=== PATIENT | female | born 1995 | race Caucasian/White ===

== ENCOUNTER 2021-01-20 21:41 | Outpatient (CLI) | payer MEDICAID ==
[2021-01-20 22:12] VITALS: BP 114/65
[2021-01-20] MEDS ORDERED: LACTATED RINGERS 1,000 ML IV ONE (22:44)
[2021-01-20 22:59] LABS: Bacteria,Urine 2+ /HPF (Negative); Bilirubin,Urine NEG (Negative); Blood,Urine NEG (Negative); Color,Urine Yellow (Yellow); Mucus,Urine 3+ /HPF
== END 2021-01-20 23:34 | disposition home or self-care (01) ==
LOC: TRG 21:41
PROVIDERS: ATTEND Obstetrics & Gynecology
DX: O26.893 Other specified pregnancy related conditions, third trimester (principal); R10.9 Unspecified abdominal pain; Z3A.31 31 weeks gestation of pregnancy
CPT/HCPCS: 59025; 81001

== ENCOUNTER 2021-03-19 01:58 | Inpatient (IN) | payer MEDICAID ==
[2021-03-19] MEDS: LACTATED RINGERS 1,000 ML IV SCH ×2 (02:00→05:52)
--- NOTE | 2021-03-19 02:53 | Anesthesia Day of Surgery ---
Anesthesia Day of Surgery - Day of Surgery Patient Examined: Yes Patient H&P Reviewed: Yes Patient is NPO: Yes Beta Blockers: No Cardiac Clearance: No Pulmonary Clearance: No Phillip's Test: N/A
[2021-03-19] MEDS ORDERED: NALOXONE 0.4 MG/1 ML INJ IV PRN ×2 (02:55→03:22)
[2021-03-19] MEDS ORDERED: ONDANSETRON 4 MG/2 ML INJ IV PRN (02:55)
[2021-03-19] MEDS ORDERED: HYDROmorphone 1 MG/1 ML INJ IV PRN (02:55)
--- NOTE | 2021-03-19 02:55 | Anesthesia Consultation ---
Anesthesia Consult and Med Hx Date of service: 03/19/21 - Airway Anesthetic Teeth Evaluation: Poor ROM Head & Neck: Adequate Mental/Hyoid Distance: Adequate Mallampati Class: Class II Intubation Access Assessment: Probably Good - Pulmonary Exam CTA: Yes - Cardiac Exam Cardiac Exam: RRR - Pre-Operative Health Status ASA Pre-Surgery Classification: ASA3 Proposed Anesthetic Plan: Spinal - Pre-Anesthesia Comment Pre-Anesthesia Comments: csection 2020 - Pulmonary Hx Smoking: No Hx Asthma: No Hx Respiratory Symptoms: No SOB: No COPD: No Home Oxygen Therapy: No Hx Pneumonia: No Hx Sleep Apnea: No - Cardiovascular System Hx Hypertension: No Hx Coronary Artery Disease: No Hx Heart Attack/AMI: No Hx Angina: No Hx Percutaneous Transluminal Coronary Angioplasty (PTCA): No Hx Cardia Arrhythmia: No Hx Pacemaker: No Hx Internal Defibrillator: No Hx Valvular Heart Disease: No Hx Heart Murmur: No Hx Peripheral Vascular Disease: No - Central Nervous System Hx Neuromuscular Disorder: No Hx Seizures: No CVA: No Hx Back Pain: Yes Hx Psychiatric Problems: No - Gastrointestinal Hx Ulcer: No Hx Gastroesophageal Reflux Disease: Yes - Endocrine Hx Renal Disease: No Hx End Stage Renal Disease: No Hx Cirrhosis: No Hx Liver Disease: No Hx Insulin Dependent Diabetes: No Hx Non-Insulin Dependent Diabetes: No Hx Thyroid Disease: No Hx Hypothyroidism: No Hx Hyperthyroidism: No - Hematic Hx Anemia: No Hx Sickle Cell Disease: No - Other Systems Hx Alcohol Use: No Hx Substance Use: No Hx Cancer: No Hx Obesity: Yes - Additional Comments Anesthesia Medical History Comments: HIV POSITIVE
[2021-03-19] MEDS ORDERED: FAMOTIDINE 20 MG/2 ML INJ IV ONE (02:59)
[2021-03-19] MEDS ORDERED: ceFAZolin/Water 2 GM/20 ML 2 GM/20 ML SYRINGE IV NR (02:59)
[2021-03-19] MEDS ORDERED: BICITRA ORAL LIQD 30ML PO ONE (02:59)
[2021-03-19] MEDS ORDERED: METOCLOPRAMIDE 10 MG/2 ML INJ IV ONE (02:59)
[2021-03-19 03:11] LABS: Eosinophils % (Auto) 0.5 % (0.0-4.3); Hematocrit 30.2 % (30.3-42.9); Hemoglobin 9.8 gm/dl (10.1-14.3); Lymphocytes # (Auto) 2.3 K/mm3 (1.2-5.4); Lymphocytes % (Auto) 23.5 % (13.4-35.0); Mean Corpuscular HGB Conc 33 % (30-34); Monocytes # (Auto) 0.7 K/mm3 (0.0-0.8); Monocytes % (Auto) 7.5 % (0.0-7.3); Platelet Count 249 K/mm3 (140-440); Red Blood Count 4.63 M/mm3 (3.65-5.03)
[2021-03-19 03:12] LABS: Mean Corpuscular Volume 65 fl (79-97)
--- NOTE | 2021-03-19 03:19 | History and Physical Report ---
History of Present Illness Date of examination: 03/19/21 Date of admission: March 19, 2021 Chief complaint: Leakage of fluid History of present illness: 25-year-old -1-0-1 at 39+5 weeks who presents in active labor with advanced cervical dilatation and leakage of fluid. The patient's course is complicated by positive HIV status, previous delivery, late presentation to care at 34 weeks and language barrier. The patient has been on Descovy during her . She is GBS positive. Past History Past Medical History: other (HIV positive) Past Surgical History: section Social history: single - Obstetrical History Expected Date of Delivery: 03/21/21 Actual Gestation: 39 Week(s) 5 Day(s) : 2 Para: 1 Hx # Term Pregnancies: 0 Number of Pregnancies: 1 Spontaneous Abortions: 0 Induced : 0 Number of Living Children: 1 Medications and Allergies Allergies Allergy/AdvReac Type Severity Reaction Status Date / Time No Known Allergies Allergy Verified 03/12/20 02:15 Home Medications Medication Instructions Recorded Confirmed Last Taken Type Descovy 200-25 mg (Nf) 1 tab PO QDAY 03/19/21 03/19/21 03/18/21 10:00 History Dolutegravir [Tivicay] 1 tab PO DAILY 03/19/21 03/19/21 03/18/21 10:00 History Vitamin 1 tab PO QDAY 03/19/21 03/19/21 03/18/21 10:00 History Active Meds: Active Medications Hydromorphone HCl (Hydromorphone 1 Mg/1 Ml Inj) 0.5 mg IV Q5M PRN PRN Reason: BREAK Stop: 03/19/21 10:24 Lactated Ringer's (Lactated Ringers) 1,000 mls @ 2,250 mls/hr IV PREOP CARMEN Stop: 03/20/21 03:12 Last Admin: 03/19/21 02:00 Dose: 2,250 mls/hr Documented by: Cefazolin Sodium (Ancef/Sterile Water 2 Gm/20 Ml) 2 gm in 20 mls @ 80 mls/hr IV PREOP NR; Protocol Stop: 03/19/21 23:45 Naloxone HCl (Naloxone 0.4 Mg/1 Ml Inj) 0.2 mg IV Q2MIN PRN PRN Reason: Res Rate </= 8 or 02 SAT < 92% Ondansetron HCl (Ondansetron 4 Mg/2 Ml Inj) 4 mg IV Q8H PRN PRN Reason: Nausea And Vomiting Sodium Chloride (Sodium Chloride 0.9% 10 Ml Flush Syringe) 10 ml IV PRN NR Stop: 03/20/21 02:59 Review of Systems All systems: negative Genitourinary: leakage of fluid, pelvic pain, contractions - Vital Signs Vital signs: Vital Signs Pulse Pulse Ox 103 H 97 03/19/21 02:17 03/19/21 02:17 Temp Pulse Resp BP Pulse Ox 91 H 98 03/19/21 03:12 03/19/21 03:12 - Physical Exam Breasts: Positive: deferred Cardiovascular: Regular rate Lungs: Positive: Clear to auscultation Abdomen: Positive: normal appearance Results Result Diagrams: 03/19/21 02:25 Abnormal lab results 03/19/21 Range/Units 02:25 Hgb 9.8 L (10.1-14.3) gm/dl Hct 30.2 L (30.3-42.9) % MCV 65 L (79-97) fl MCH 21 L (28-32) pg RDW 19.0 H (13.2-15.2) % [place] % (Auto) 7.5 H (0.0-7.3) % All other labs normal. Assessment and Plan - Patient Problems (1) Previous delivery affecting Current Visit: Yes Status: Acute Plan to address problem: The risk and benefits of the surgery were discussed with the patient via the language line The patient will undergo a repeat delivery (2) HIV positive Current Visit: Yes Status: Acute (3) Active labor at term Current Visit: Yes Status: Acute (4) Spontaneous rupture of membranes Current Visit: Yes Status: Acute
--- NOTE | 2021-03-19 03:20 | Procedure Note ---
OB Delivery Note - Delivery Date of Delivery: 03/19/21 Surgeon: NATY GUERRA Estimated blood loss: other (600 mL) - Section Preop diagnosis: repeat Postop diagnosis: same section procedure: section, repeat low transverse Disposition: PACU - Infant A at 1 minute: 8 at 5 minutes: 9 Infant Gender: Male (Weight 3470 g)
--- NOTE | 2021-03-19 03:21 | Operative Report ---
Operative Report Operative Report: Date of surgery: April 15, 2021 Preoperative diagnosis: at 39+5 weeks; previous delivery; ac tive labor at term; positive HIV status; spontaneous rupture membranes Postoperative diagnosis: Same as above Procedure: Repeat low transverse delivery; lysis of adhesion Surgeon: Karla Chong M.D. Anesthesia: Regional Estimated blood loss: 600 mL IV fluids: 900 mL Urine output: 150 mL Findings: Liveborn male infant with Apgars of 8 and 9 weight 3470 g Indications: 25-year-old -1-0-1 at 39+5 weeks who presents in active labor and spontaneous rupture of membranes with a history of prior delivery. The patient is HIV positive. Procedure: The patient was taken to the operating room and given regional anesthesia without complication. She was prepped and draped in a normal sterile fashion. A Pfannenstiel skin incision was made down to layer the fascia which was nicked in the midline extended laterally with the Bovie cautery. The superior aspect of the rectus fascia was grasped with Nafisa clamps x2 and the rectus muscles off s harply. This was done in inferior fashion as well. The rectus muscle midline and peritoneum entered bluntly. There were noted to be multiple adhesions to the anterior surface of the uterus. Lysis of adhesions had to be performed. An Keon retractor was then inserted. A bladder blade was placed. The vesicouterine peritoneum was then entered sharply with Metzenbaum scissors. A bladder flap was created digitally. A low transverse uterine incision was then made and extended digitally. There was clear fluid upon entry into the uterine cavity. The head was delivered through the incision with fundal pressure. A nuchal cord x1 was manually reduced. The cord was clamped and cut x2 and was passed off to pediatrics. The placenta was then manually extracted. The uterus was then exteriorized and cleared of clots and debris. The uterine incision was then closed in a running locked fashion with 0 Vicryl additional imbricating stitch was applied for 2 layer closure. The posterior cul-de-sac was then copiously irrigated. The uterus was replaced back into the abdomen and pelvis were the gutters were then irrigated. The Keon retractor was then removed. The peritoneum was then reapproximated with 3-0 Vicryl incorporating the rectus muscle. The fascia was then closed with 0 Vicryl in a running fashion. The skin was then reapproximated with 3-0 Monocryl on a Fernando needle subcuticular fashion. Steri-Strips to place across the incision and a Crede procedures performed at the end of the surgery. A pressure dressing was applied to the incision. The surgery productive of a liveborn male infant with Apgars of 8 and 9 weight 3470 g. The patient was taken to the recovery room in stable condition. All sponge laps and needle counts correct x2.
[2021-03-19] MEDS ORDERED: LANOLIN/ZINC/DIMETHICONE (LANSINOH) 7 GM TP PRN (03:22)
[2021-03-19] MEDS ORDERED: WITCH HAZEL/ GLYCERIN PAD TP PRN (03:22)
[2021-03-19] MEDS ORDERED: KETOROLAC 30 MG/1 ML INJ IV PRN (03:23)
[2021-03-19] MEDS ORDERED: ACETAMINOPHEN 325 MG TAB PO PRN (03:23)
[2021-03-19] MEDS ORDERED: MORPHINE 4 MG/1 ML INJ IV PRN (03:23)
[2021-03-19] MEDS ORDERED: ceFAZolin 1 GM VIAL IV ONE (03:27)
[2021-03-19] MEDS ORDERED: PHENYLEPHRINE/NS 1,000 MCG/10 ML SYRINGE (OR USE) IV ONE (03:36)
[2021-03-19] MEDS ORDERED: WATER FOR IRRIG STERILE 1,500 ML BOTTLE IR ONE (03:41)
[2021-03-19] MEDS ORDERED: SODIUM CHLORIDE 0.9% IRR 1,500 ML BOTTLE IR ONE (03:41)
[2021-03-19] MEDS ORDERED: LACTATED RINGERS 1,000 ML ONE ×2 (03:44→05:48)
[2021-03-19] MEDS ORDERED: OXYTOCIN DRIP 30 UNITS/500 ML BAG IV SCH (04:00)
[2021-03-19] MEDS ORDERED: ONDANSETRON 4 MG/2 ML INJ ONE (04:00)
[2021-03-19] MEDS ORDERED: D5W/LACTATED RINGERS 1,000 ML IV SCH (04:00)
--- NOTE | 2021-03-19 04:50 | Progress Note ---
Spinal Anesthesia Block - Spinal Anesthesia Block Start Time: 03:21 Stop Time: :25 Performed by:: MAHESH ROSADO Procedure: Patient IDed, H&P reviewed, all questions and concerns were answered, and consent was signed. Timeout was performed at bedside. Patient in sitting position. Sterile prep and drape was performed. [3] ml of 1% lidocaine skin wheal at L[3]- L [4]. Needle introducer advanced. 25 gauge spinal needle advanced. Clear, free flowing CSF. negative blood, negative paresthesia. Spinal dose given. All needles removed. Patient tolerated procedure.
[2021-03-19] MEDS: ePHEDrine SULFATE 50 MG/1 ML INJ IV PRN ×2 (05:07→05:20)
[2021-03-19] MEDS ORDERED: LACTATED RINGERS 1,000 ML IV ONE (05:52)
[2021-03-19] MEDS ORDERED: TENOFOVIR 300 MG PO SCH (10:00)
[2021-03-19] MEDS ORDERED: EMTRICITABINE 200 MG PO SCH (10:00)
[2021-03-19] MEDS: EMTRICITABINE 200 MG CAP PO SCH (12:30)
[2021-03-19] MEDS: TENOFOVIR 300 MG TAB PO SCH (12:30)
[2021-03-19 15:51] LABS: Hematocrit 26.4 % (30.3-42.9); Hemoglobin 8.4 gm/dl (10.1-14.3)
[2021-03-19] MEDS: DOLUTEGRAVIR 50 MG TAB PO SCH (16:48)
[2021-03-19] MEDS: oxyCODONE /ACETAMINOPHEN 5-325MG TAB PO PRN (17:32)
--- NOTE | 2021-03-19 17:58 | Post Anesthesia Evaluation ---
- Post Anesthesia Evaluation Patient Participated: Yes Airway Patent: Yes Stable Respiratory Function: Yes Nausea/Vomiting: No Temp > 96.8F: Yes Pain Manageable: Yes Adequeate Hydration: Yes Anesthesia Complications: No Block Receding Appropriately: Yes Patient on Ventilator: No
[2021-03-19] MEDS: IBUPROFEN 600 MG TAB PO PRN (20:43)
[2021-03-20] MEDS: oxyCODONE /ACETAMINOPHEN 5-325MG TAB PO PRN ×5 (00:33→23:47)
--- NOTE | 2021-03-20 07:58 | Progress Note ---
Assessment and Plan A: POD1 s/p R. C/S x 1 HIV+ Limited Care P:Continue with routine care Subjective - Subjective Date of service: 03/20/21 Principal diagnosis: POD1 Repeat , +HIV, Insufficient PNC Interval history: Patient feeling well, reporting some pain but well controlled with medications. Lochia decreasing, patient is passing flatus and ambulating without assistance. Patient reports: voiding normally, pain well controlled, flatus, ambulating normally : doing well Objective - Vital Signs Latest vital signs: Vital Signs Temp Pulse Resp BP Pulse Ox 03/20/21 00:53 98.0 F 78 18 111/57 100 03/19/21 20:31 98.1 F 86 18 116/59 97 03/19/21 16:26 98.1 F 99 H 18 107/72 97 03/19/21 12:12 97.6 F 87 18 105/64 98 Intake and Output 03/19/21 03/19/21 03/20/21 15:59 23:59 07:59 Intake Total 1300 500 Output Total 363 221 2474 Balance -600 500 -700 Intake: IV 1000 D5lr 1,000 ml @ 125 mls/ 1000 hr IV DIRECT CARMEN Rx#: [id number] Oral 200 Intake, Free Water 300 300 Output: Urine 846 [id number] Indwelling Catheter 600 Void 800 1200 Other: Total, Intake Amount 200 Total, Output Amount 600 800 600 # Voids Indwelling Catheter 450 Void 1 2 - Exam Uterus: Present: firm, fundal height at umbilicus - Labs Labs: Abnormal lab results 03/19/21 Range/Units 14:57 Hgb 8.4 L (10.1-14.3) gm/dl Hct 26.4 L (30.3-42.9) %
[2021-03-20] MEDS: DOLUTEGRAVIR 50 MG TAB PO SCH (09:32)
[2021-03-20] MEDS: EMTRICITABINE 200 MG CAP PO SCH (10:09)
[2021-03-20] MEDS: TENOFOVIR 300 MG TAB PO SCH (10:09)
[2021-03-20] MEDS: IBUPROFEN 600 MG TAB PO PRN (13:25)
[2021-03-20] MEDS: FERROUS SULFATE 325 MG TAB PO SCH (13:26)
[2021-03-20 21:01] LABS: Bilirubin,Urine NEG (Negative); Blood,Urine LG (Negative); Color,Urine Straw (Yellow); Protein,Urine <15 mg/dL mg/dL (Negative); Urobilinogen,Urine < 2.0 mg/dL (<2.0)
[2021-03-20 21:30] LABS: Amphetamine Screen,Urine PRESUMPTIVE NEGATIVE; Benzodiazepines Screen,Urine PRESUMPTIVE NEGATIVE; Cannabinoid Screen,Urine PRESUMPTIVE NEGATIVE; Cocaine Screen,Urine PRESUMPTIVE NEGATIVE; Methadone Screen,Urine PRESUMPTIVE NEGATIVE; Opiate Screen,Urine PRESUMPTIVE NEGATIVE
[2021-03-21] MEDS: IBUPROFEN 600 MG TAB PO PRN ×2 (01:17→20:22)
[2021-03-21] MEDS: oxyCODONE /ACETAMINOPHEN 5-325MG TAB PO PRN ×2 (09:09→17:16)
[2021-03-21] MEDS: DOLUTEGRAVIR 50 MG TAB PO SCH (09:28)
[2021-03-21] MEDS: EMTRICITABINE 200 MG CAP PO SCH (09:28)
[2021-03-21] MEDS: TENOFOVIR 300 MG TAB PO SCH (09:29)
[2021-03-21] MEDS: FERROUS SULFATE 325 MG TAB PO SCH (12:04)
--- NOTE | 2021-03-21 19:14 | Progress Note ---
Assessment and Plan A: POD2 s/p R. C/S x 1 HIV+ Limited Care P:Continue with routine care -Anticipate discharge POD 3-4 -infant undergoing treatment 2/2 maternal HIV status-plan for 5 days inpatient - Patient Problems (1) delivery delivered Current Visit: Yes Status: Acute (2) HIV positive Current Visit: Yes Status: Acute Subjective - Subjective Principal diagnosis: POD1 Repeat , +HIV, Insufficient PNC Patient reports: appetite normal, voiding normally, pain well controlled, flatus, ambulating normally [place]: other (receiving treatment), bottle feeding Objective - Vital Signs Latest vital signs: Vital Signs Temp Pulse Resp BP BP Pulse Ox 03/21/21 08:47 98.3 F 88 18 122/72 98 03/21/21 00:00 98.6 F 74 18 115/69 Intake and Output 03/21/21 03/21/21 03/21/21 06:59 14:59 22:59 Intake Total 300 Balance 300 Intake: Intake, Free Water 300 Other: # Voids Void 1 1 1 - Exam Breasts: Present: normal Cardiovascular: Present: Regular rate Lungs: Present: Clear to auscultation Abdomen: Present: normal appearance, normal bowel sounds. Absent: distention, tenderness, guarding Uterus: Present: normal, firm Extremities: Present: normal Incision: Present: normal, intact
[2021-03-21] MEDS: MAGNESIUM HYDROXIDE (MOM) ORAL LIQD UDC PO PRN (20:22)
[2021-03-22] MEDS: oxyCODONE /ACETAMINOPHEN 5-325MG TAB PO PRN ×3 (01:46→18:38)
[2021-03-22] MEDS: IBUPROFEN 600 MG TAB PO PRN ×3 (05:39→21:23)
[2021-03-22] MEDS: MAGNESIUM HYDROXIDE (MOM) ORAL LIQD UDC PO PRN (05:44)
--- NOTE | 2021-03-22 08:12 | Progress Note ---
Assessment and Plan - Patient Problems (1) Previous delivery affecting Current Visit: Yes Status: Acute Plan to address problem: improve pain management discharge to room in status (2) HIV positive Current Visit: Yes Status: Acute (3) Active labor at term Current Visit: Yes Status: Acute (4) Spontaneous rupture of membranes Current Visit: Yes Status: Acute Subjective - Subjective Date of service: 03/22/21 Principal diagnosis: POD1 Repeat , +HIV, Insufficient PNC Interval history: Patient is experiencing incisional pain. She is tolerating a regular diet. She has voided. Baby is receiving anti-viral therapy Patient reports: appetite normal, voiding normally, pain poorly controlled : doing well Objective - Vital Signs Latest vital signs: Vital Signs Temp Pulse Resp BP Pulse Ox 03/22/21 01:40 97.9 F 93 H 18 105/69 97 03/21/21 08:47 98.3 F 88 18 122/72 98 Intake and Output 03/21/21 03/22/21 03/22/21 22:59 06:59 14:59 Intake Total 120 360 Balance 120 360 Intake: Oral 120 360 Other: Total, Intake Amount 120 120 # Voids Void 1 1
--- NOTE | 2021-03-22 08:13 | Discharge Summary ---
Providers - Providers Date of Admission: 03/19/21 03:22 Date of discharge: 03/22/21 Attending physician: NATY GUERRA Primary care physician: NATY GUERRA Hospitalization Reason for admission: active labor Delivery: Procedure: section, repeat low transverse Discharge diagnosis: IUP at term delivered Hospital course: Patient admitted in active labor. She underwent a repeat delivery. Postop uneventful Condition at discharge: Good Disposition: DC-01 TO HOME OR SELFCARE - Discharge Diagnoses (1) Previous delivery affecting Status: Acute (2) HIV positive Status: Acute (3) Active labor at term Status: Acute (4) Spontaneous rupture of membranes Status: Acute Plan - Discharge Medications Prescriptions: Ibuprofen [Motrin] 800 mg PO Q8HR PRN #60 tablet PRN Reason: Pain , Severe (7-10) oxyCODONE /ACETAMINOPHEN [Percocet 5/325] 1 tab PO Q6HR PRN #30 tablet PRN Reason: Pain - Provider Discharge Summary Activity: no sex for 6 weeks, no heavy lifting 4 weeks, no strenuous exercise Diet: routine Instructions: routine Additional instructions: [] Smoking cessation referral if applicable(refer to patient education folder for contact #) [] Refer to [facility] Booklet Call your doctor immediately for: * Fever > 100.5 * Heavy vaginal bleeding ( >1 pad per hour) * Severe persistent headache * Shortness of breath * Reddened, hot, painful area to leg or breast * Drainage or odor from incision. * Keep incision clean and dry at all times and follow doctor's instructions regarding bathing/showering schedule postop in 2 weeks - Follow up plan
[2021-03-22] MEDS: EMTRICITABINE 200 MG CAP PO SCH (09:49)
[2021-03-22] MEDS: TENOFOVIR 300 MG TAB PO SCH (09:49)
[2021-03-22] MEDS: DOLUTEGRAVIR 50 MG TAB PO SCH (09:49)
[2021-03-22] MEDS: FERROUS SULFATE 325 MG TAB PO SCH (14:24)
[2021-03-22 17:54] VITALS: BP 111/72
== END 2021-03-22 23:20 | disposition home or self-care (01) | DRG 765 ==
LOC: TRG 01:58 → LD 02:16 → TRG 03:22 → OB 08:12
PROVIDERS: ADMIT Obstetrics & Gynecology; ATTEND Obstetrics & Gynecology
PROC: 10D00Z1 Extraction of Products of Conception, Low, Open Approach (ICD-10-PCS; principal; 2021-03-19)
DX: O34.211 Maternal care for low transverse scar from previous cesarean delivery (principal); O98.72 Human immunodeficiency virus [HIV] disease complicating childbirth; D62 Acute posthemorrhagic anemia; Z21 Asymptomatic human immunodeficiency virus [HIV] infection status; K21.9 Gastro-esophageal reflux disease without esophagitis; O99.62 Diseases of the digestive system complicating childbirth; O99.214 Obesity complicating childbirth; O99.824 Streptococcus B carrier state complicating childbirth; O90.81 Anemia of the puerperium; Z3A.39 39 weeks gestation of pregnancy; Z37.0 Single live birth
CPT/HCPCS: 36415; 80307; 81001; 85014; 85018; 85025; 86592; 86706; 86762; 86803; 86850; 86900; 86901; 87806; G0378; J0690; J1170; J1885; J2270; J2370; J2405; J2765; J3490; J7120; J7121; U0003